=== PATIENT | female | born 1990 | race Caucasian/White ===

== ENCOUNTER 2022-04-13 17:37 | Day surgery (SDC) | payer BC ==
[2022-04-13 18:29] LABS: Fetal Membranes Rupture No Membranes Rupture (No Rupture)
[2022-04-13 18:40] VITALS: BMI 21.2
[2022-04-13] MEDS ORDERED: hydrALAZINE 20 MG/ML VIAL SLOW IVP PRN (18:56)
== END 2022-04-13 23:05 | disposition home or self-care (01) ==
LOC: CSHLD/OP 17:37
PROVIDERS: ATTEND Obstetrics & Gynecology
DX: O99.891 Other specified diseases and conditions complicating pregnancy (principal); N89.8 Other specified noninflammatory disorders of vagina; O30.092 Twin pregnancy, unable to determine number of placenta and number of amniotic sacs, second trimester; Z3A.21 21 weeks gestation of pregnancy; Z86.32 Personal history of gestational diabetes
CPT/HCPCS: 76815; 84112; 87480; 87510; 87660; 99284

== ENCOUNTER 2022-04-26 10:17 | Observation (INO) | payer BC ==
[2022-04-26 10:47] VITALS: BMI 21.7
[2022-04-26] MEDS ORDERED: hydrALAZINE 20 MG/ML VIAL SLOW IVP PRN (10:55)
[2022-04-26] MEDS ORDERED: Azithromycin 500 MG in Sodium Chloride 0.9% 250 ML 250 ML IVPB SCH (11:00)
[2022-04-26] MEDS ORDERED: Ampicillin 2 GM in Sodium Chloride 0.9% 100 ML IVPB SCH (12:00)
[2022-04-26] MEDS ORDERED: Magnesium Sulfate 20 gm/500 ml 20 GM/500 ML BAG IVPB SCH (12:15)
[2022-04-26] MEDS ORDERED: Betamet Acet/Betamet Na Ph 30 MG/5 ML VIAL IM SCH (12:15)
== END 2022-04-26 13:00 | disposition home or self-care (01) ==
LOC: CSHLD/OP 10:17 → CSHLD 11:04 → INTOOBSV 11:04
PROVIDERS: ADMIT Obstetrics & Gynecology; ATTEND Obstetrics & Gynecology
DX: O99.891 Other specified diseases and conditions complicating pregnancy (principal); N89.8 Other specified noninflammatory disorders of vagina; O24.410 Gestational diabetes mellitus in pregnancy, diet controlled; O30.042 Twin pregnancy, dichorionic/diamniotic, second trimester; Z3A.23 23 weeks gestation of pregnancy; Z79.82 Long term (current) use of aspirin
CPT/HCPCS: J0290; J0456; J0702; J3475; J3490; J7050

== ENCOUNTER 2025-05-14 00:21 | Inpatient (IN) | payer BC ==
[2025-05-14] MEDS ORDERED: Lidocaine 1% (PF) 30 ML VIAL SC PRN (00:59)
[2025-05-14] MEDS ORDERED: hydrALAZINE 20 MG/ML VIAL SLOW IVP PRN ×2 (00:59→08:17)
[2025-05-14] MEDS ORDERED: Diphenoxylate HCl/Atropine Tablet PO PRN ×2 (00:59)
[2025-05-14] MEDS ORDERED: Tranexamic Acid 1,000 MG/10 ML VIAL IVP PRN (00:59)
[2025-05-14] MEDS ORDERED: Ondansetron PF 4 MG/2 ML Vial IVP PRN ×2 (00:59→08:17)
[2025-05-14] MEDS ORDERED: Carboprost 250 MCG/ML AMP IM PRN (00:59)
[2025-05-14] MEDS ORDERED: Acetaminophen 500 MG TAB PO PRN (00:59)
[2025-05-14] MEDS ORDERED: Methylergonovine 0.2 MG/ML VIAL IM PRN (00:59)
[2025-05-14] MEDS ORDERED: Oxytocin 30 units/NS 500 ML 500 ML IV SCH ×2 (01:00→08:17)
[2025-05-14 01:17] VITALS: BMI 24.5
[2025-05-14 01:45] LABS: Hematocrit 34.7 % (34.9-44.5); Hemoglobin 10.7 g/dL (12.0-15.5); Mean Corpuscular Hemoglobin 23.8 pg (27.0-33.0); Mean Corpuscular Volume 77.3 fL (81.6-98.3); Platelet Count 284 10x3/uL (150-450); Red Blood Cell (RBC) Count 4.49 10x6/uL (3.90-5.03); White Blood Cell (WBC) Count 10.43 10x3/uL (3.5-10.5)
[2025-05-14 02:02] LABS: Syphilis Antibody Index 0.06 S/CO (<1.00 Non-Reactive)
[2025-05-14 02:03] LABS: Hep B Surf Ag - L&D Non-Reactive S/CO (NonReactive)
[2025-05-14] MEDS: Ibuprofen 800 MG TAB PO PRN (07:28)
[2025-05-14] MEDS ORDERED: HYDROcodone/Acetaminophen 5/325 mg Tablet PO PRN ×2 (08:17)
[2025-05-14] MEDS ORDERED: Milk Of Magnesia 30 ML UDCUP PO PRN (08:17)
[2025-05-14] MEDS ORDERED: Bisacodyl 10 MG SUPP PR PRN (08:17)
[2025-05-14] MEDS: fentaNYL/Ropivacaine Epidural 100 ML ONE (08:23)
[2025-05-14] MEDS: Ferrous Sulfate 325 MG TAB PO SCH (08:54)
[2025-05-14] MEDS: Benzocaine-Menthol 82.5 ML CAN TOP PRN (08:57)
[2025-05-14] MEDS: Boostrix 0.5 ML (Tdap) VIAL (>/=7 yrs of age) IM ONE (08:57)
[2025-05-14] MEDS: Ibuprofen 800 MG TAB PO SCH (16:49)
[2025-05-15 09:07] VITALS: BP 93/55; TEMP 98.1
== END 2025-05-15 13:45 | disposition home or self-care (01) | DRG 807 ==
LOC: CSHLD/OP 00:21 → CSHLD 01:42 → CSHPP 08:00
PROVIDERS: ADMIT Obstetrics & Gynecology; ATTEND Obstetrics & Gynecology
PROC: 10E0XZZ Delivery of Products of Conception, External Approach (ICD-10-PCS; principal; 2025-05-14)
PROC: 0KQM0ZZ Repair Perineum Muscle, Open Approach (ICD-10-PCS; 2025-05-14)
DX: O70.1 Second degree perineal laceration during delivery (principal); Z37.0 Single live birth; Z3A.39 39 weeks gestation of pregnancy
CPT/HCPCS: 85027; 86780; 86850; 86900; 86901; 87340; 99285